=== PATIENT | male | born 1935 | race Caucasian/White ===

== ENCOUNTER 2017-06-07 13:06 | Inpatient (IN) | payer MEDICARE, OTHER ==
[2017-06-07] VITALS (12 sets, daily range): BP systolic 116–132; BP diastolic 77–94; BMI 21.4
[~2017-06-07] VITALS: Ht 182.9 cm; Wt 68.9 kg
--- NOTE | ~2017-06-07 | HEMODYNAMI ---
PATIENT:Deepak GALEANO MEDICAL RECORD: [id number] : 35 [facility] ADMISSION DATE: 06/07/17 Generatedon:06/15/201714:24 Patient name: Deepak GALEANO Patient #: [id number] SSN: : [birth year] Date of study: 06/15/2017 Page: Of Hemodynamic Procedure Report Patient Data Patient Demographics Procedure consent was obtained First Name: Deepak Gender: Male Last Name: WALESKA : 1935 Middle Initial: D Age: 82 year(s) Patient #: [id number] Race: Additional ID: [id number] Contact details [address]: [address] [place] [address] State: [place] City: [place] Zip code: [address] Past Medical History Allergies Allergen Reaction Date Comments Reported Penicillins 06/15/2017 Other allergy 06/15/2017 LEVAQUIN Admission Admission Data Admission Date: 06/07/2017 Admission Time: 13:06 Room #: 2114 Procedure Procedure Types Cath Procedure Diagnostic Procedure C [facility] w/Coronaries Procedure Description Procedure Date Procedure Date: 06/15/2017 Procedure Start Time: 14:07 Procedure End Time: 14:24 Procedure Staff Name Function Laci Burgos MD Performing Physician Giovanni Alvarado RT Monitor Lavonne Presley RT Scrub Xavi Garcia RN Nurse Procedure Data Cath Procedure Fluoroscopy Diagnostic fluoroscopy Total fluoroscopy Time: 1.1 time: 1.1 min min Diagnostic fluoroscopy Total fluoroscopy dose: dose: 62.73 mGy 62.73 mGy Contrast Material Contrast Material Type Amount (ml) Isovue 300 41 Entry Location Entry Primary Successful Side Size Upsize Upsize Entry Closure Caraballo ccessful Closure Location (Fr) 1 (Fr) 2 (Fr) Remarks Device Remarks Radial Right 6 Fr Mechanical artery Short Compression Estimated blood loss: 5 ml Diagnostic catheters Device Type Used For End Catheter Placement DIAGNOSTIC Cabot 110cm 5 Procedure Fr catheter ([id number]) Procedure Medications Medication Administration Route Dosage Oxygen NC 2 l/min Heparin Flush Bag added to field 2 bags (1000units/500ml NS) 0.9% NaCl I.V. ml/hr Radial Cocktail added to field 1 syringe (Verapomil 2mg/Nitro 400mcg/Heparin 1500units) Radial Cocktail added to field 1 syringe (Verapomil 2mg/Nitro 400mcg/Heparin 1500units) Hemodynamics Rest Heart Rate: 80 (bpm) Pressure Samples Time Site Value (mmHg) Purpose Heart Use Rate(bpm) 14:11 LV 50/-88,50 Snapshot 55 Snapshots Pre Cath Intra NCS Post Cath Vital Signs Time Heart Resp SPO2 etCO2 NIBP (mmHg) Rhythm Pain Sedation Rate (ipm) (%) (mmHg) Status Level (bpm) 13:58:39 80 28 94 0 123/83(107) NSR 0 (11) 10(A) , No pain 14:02:53 79 27 95 0 122/83(109) NSR 0 (11) 10(A) , No pain 14:07:56 81 25 94 0 126/74(109) NSR 0 (11) 10(A) , No pain 14:12:10 82 21 95 0 102/68(81) NSR 0 (11) 10(A) , No pain 14:16:20 81 21 94 0 96/68(88) NSR 0 (11) 10(A) , No pain 14:18:10 80 17 94 0 112/75(89) NSR 0 (11) 10(A) , No pain 14:22:37 81 17 95 0 No Cuff NSR 0 (11) 10(A) , No pain Medications Time Medication Route Dose Verified Delivered Reason Notes Effectiveness by by 13:58:55 Oxygen NC 2 l/min Laci Garcia RN physician 13:59:03 Heparin Flush added 2 bags Laci Hurley used for Bag to Aubrey Garcia RN procedure (1000units/500ml field NS) 13:59:29 0.9% NaCl I.V. ml/hr Laci Garcia RN physician 13:59:43 Radial Cocktail added 1 Laci Hurley used for (Verapomil to syringe Aubrey Garcia RN procedure 2mg/Nitro field 400mcg/Heparin 1500units) 14:17:22 Radial Cocktail added 1 Laci Aguero for (Verapomil to syringe Aubrey Burgos MD vasodilation 2mg/Nitro field 400mcg/Heparin 1500units) Procedure Log Time Note 13:30:10 Giovanni Alvarado RT(R) (CV) sent for patient. Start room use. 13:34:36 Informed consent obtained and on chart 13:34:45 Diagnostic Cath Status : Elective 13:35:12 Time tracking: Regular hours 13:35:17 Plan of Care:Hemodynamics will remain stable., Cardiac rhythm will remain stable., Comfort level will be maintained., Respiratory function will remain adequate., Patient/ family verbilizes understanding of procedure., Procedure tolerated without complication., Recovers from procedure without complications.. 13:44:20 Patient received from Med II to CCL 1 Alert and oriented. Tansferred to table in Supine position. 13:44:22 Warm blankets applied, and suzanne hugger turned on for patient comfort. 13:44:22 Correct patient and procedure confirmed by team. 13:44:24 ECG and BP/O2 sat monitors applied to patient. 13:57:35 Vital chart was started 13:58:55 Oxygen 2 l/min NC was administered by Xavi Garcia RN; Per physician; 13:59:03 Heparin Flush Bag (1000units/500ml NS) 2 bags added to field was administered by Xavi Garcia RN; used for procedure; 13:59:29 0.9% NaCl ml/hr I.V. was administered by Xavi Garcia RN; Per physician; 13:59:43 Radial Cocktail (Verapomil 2mg/Nitro 400mcg/Heparin 1500units) 1 syringe added to field was administered by Xavi Garcia RN; used for procedure; 14:02:10 Baseline sample Acquired. 14:02:15 Rhythm: sinus rhythm 14:02:18 Full Disclosure recording started 14:03:38 H&P Date Dictated: 06/07/2017 Within 30 days and on chart.. 14:03:40 Pre-procedure instructions explained to patient. 14:03:41 Pre-op teaching completed and patient verbalized understanding. 14:03:48 Family in patients room. 14:03:59 Patient NPO since Midnight. 14:04:17 Patient allergic to Penicillins 14:04:45 Patient allergic to Other allergyLEVAQUIN 14:04:49 Is the patient allergic to Iodine/contrast media? No. 14:04:53 Is patient on blood thinner?Yes 14:05:23 ACC The patient was administered the following blood thiners within the last 24 hours: ACCPlavix 14:05:30 Patient diabetic? Unknown. 14:05:33 ----Pre-sedation anethsthesia assessment.---- 14:05:46 Previous problem with sedation/anesthesia? Unknown ? 14:05:48 Snore? Yes 14:05:51 Sleep apnea? No 14:05:52 Deviated septum? No 14:06:01 Opens mouth fully? No 14:06:03 Sticks out tongue? No 14:06:08 Airway obstruction? No ? 14:06:13 Dentures? Yes OUT 14:06:24 IV patent on arrival in right wrist with 0.9% NaCl at [facility]. 14:06:59 Right Radial & Right Groin area was prepped with chlora-prep and draped in sterile fashion 14:07:01 Physician arrived 14:07:01 --------ALL STOP TIME OUT------ 14:07:02 Final Timeout: patient, procedure, and site verified with staff and physician. All members of the team are in agreement. 14:07:04 Right Radial & Right Groin site verified by team. 14:07:08 Physical assessment completed. ASA score P 2 - A patient with mild systemic disease as per Laci Burgos MD. 14:07:13 Sedation plan: IV Moderate Sedation Medication:Versed, Fentanyl 14:07:27 Use device set Radial Dx 14:07:29 ACIST Syringe (17771) opened to sterile field. 14:07:29 Medline Cath Pack ([id number]) opened to sterile field. 14:07:30 Bag Decanter (2001S) opened to sterile field. 14:07:30 SHEATH 6FR Slender ([id number]) opened to sterile field. 14:07:31 DIAGNOSTIC WIRE .035 260cm J wire (759087) opened to sterile field. 14:07:32 ACIST Hand Control (18040) opened to sterile field. 14:07:32 ACIST Manifold (04727) opened to sterile field. 14:07:33 Tegaderm 4 x 4 (1626W) opened to sterile field. 14:07:34 MBrace Wrist Support ([id number]) opened to sterile field. 14:07:44 Procedure started. 14:07:51 Local anesthetic to right radial artery with Lidocaine 2% by Laci Burgos MD.INITIAL ACCESS ONLY 14:09:31 A 6 Fr Short sheath was inserted into the Right Radial artery 14:09:49 A DIAGNOSTIC Cabot 110cm 5 Fr catheter (122939) was advanced over the wire and used for Procedure. 14:09:54 Zero performed for pressure channel P1 14:10:00 Zero performed for pressure channel P1 14:10:06 Zero performed for pressure channel P1 14:10:13 Zero performed for pressure channel P1 14:10:19 Zero performed for pressure channel P1 14:11:41 LV hemodynamics recorded. 14:11:43 LV gram done using DON 14:11:48 EF : 20 % 14:11:59 LCA angiography performed. 14:12:26 RCA angiography performed. 14:12:36 Catheter removed. 14:12:39 TR BAND Standard ([id number]) opened to sterile field. 14:13:25 RESPIRATORY CALLED FOR ABG 14:15:01 ABG DRAWN 14:15:14 Sheath removed intact; hemostasis achieved with Mechanical Compression to the Right Radial artery. 14:15:16 Procedure ended.(Physican Out) 14:17:22 Radial Cocktail (Verapomil 2mg/Nitro 400mcg/Heparin 1500units) 1 syringe added to field was administered by Laci Burgos MD; for vasodilation; 14:17:38 Fluoroscopy time 01.10 minutes. 14:17:45 Fluoroscopy dose: 62.73 mGy 14:17:45 Flurop Dose total: 62.73 14:18:07 Contrast amount:Isovue 300 41ml. 14:18:09 Sharps counted by scrub and verified by R.N. 14:18:17 TR band inflated with 8cc of air. 14:18:19 Insertion/operative site no bleeding no hematoma. 14:19:49 Post right radial artery:stable 14:20:19 Post-procedure physical assessment completed. ASA score P 2 - A patient with mild systemic disease as per Laci Burgos MD. 14:20:30 Post procedure rhythm: sinus rhythm 14:20:33 Estimated blood loss: 5 ml 14:20:58 Patient needs reinforcement of post procedure teaching. 14:21:16 Procedure and supply charges have been captured, reviewed, submitted and are correct. 14:23:43 Vital chart was stopped 14:23:44 See physician's report for complete and final results. 14:23:46 Report given to PCU. 14:23:53 Patient transfered to PCU with Bed. 14:24:00 Procedure ended. 14:24:00 Full Disclosure recording stopped 14:24:06 End room use (Document Last) Device Usage Item Name Manufacture Quantity Catalog Hospital Part Current Minima l Lot# / Number Charge Number Stock Stock Serial# Code ACIST Acist 1 75732 626846 191229 584024 20 Syringe Medical (90107) Systems Inc Medline Cath Cardinal 1 [id number] 297327 29546 957799 5 Pack ClaimSync ([id number]) Bag Decanter Microtek 1 2001S 210513 11906 272736 5 (2001S) Medical Inc. SHEATH 6FR Terumo 1 [id number] 081036 316143 668543 40 Slender ([id number]) DIAGNOSTIC St Tushar 1 249598 091220 078431 592165 30 WIRE .035 260cm J wire (181428) ACIST Hand Acist 1 18319 865343 081583 170541 5 Control Medical (19607) Systems Inc ACIST Acist 1 75056 871685 159678 191745 5 Manifold Medical (97584) Systems Inc Tegaderm 4 x 3M 1 1626W 355422 871950 813484 5 4 (1626W) MBrace Wrist Advanced 1 140-0250-00 781736 94730 631104 5 Support Vascular ([id number]) Dynamics DIAGNOSTIC Terumo 1 40-5013 387206 876261 378262 5 Cabot 110cm 5 Fr catheter (000883) TR BAND Terumo 1 [id number] 203768 572046 142420 40 Standard ([id number]) Signature Audit [place] Stage Time Signature Unsigned Intra-Procedure 06/15/2017 Giovanni Alvarado 2:24:46 PM RT(R) (CV) Signatures Monitor : Giovanni Alvarado RT Signature : Date : Time : [facility] [address] [place] [address]
[2017-06-07] MEDS ORDERED: PROVENTIL HFA6.7 GM INH (13:35)
[2017-06-07] MEDS ORDERED: NEURONTIN 300300 MG PO (13:36)
[2017-06-07] MEDS ORDERED: SYMBICORT 80-10.2 GM INH (13:36)
[2017-06-07] MEDS ORDERED: NIFEDIPINE ER60 MG PO (13:37)
[2017-06-07] MEDS ORDERED: ZOCOR40 MG PO (13:38)
--- NOTE | 2017-06-07 14:16 | NUR ---
[facility], ALERT AN DORIENTED X3, RESPIRATIONS SHALLOW, O2 3L NC, VSS, WAS RECIEVING IV HEPARIN UPON ARRIVAL, PIV TO RIGHT AND LEFT FOREARM SALINE LOCKED AND HEPARIN STOPPED, SEEN BY DR BUSTILLOS WHO CONFIRMED HE DID NOT WANT PT ON HEPARIN, EKG OBTAINED AND REVIEWED BY APOLLO WHO ALSO REVIEWED [facility] AND SAID WE DID NOT NEED TO REDRAW LABS, CONSULTING LOREN WHO IS IN UNIT AND AWARE, HISTORY AND ASSESSMENT COMPLETED AND DONE, REVIEWED HOME MEDS WITH PT AND DAUGHTER, PT WAS POSITIVE FOR FLU TYPE A AT [facility] AND IN ISOLATION, ABLE TO VOICE ALL NEEDS, WILL CONTINUE TO MONITOR
--- NOTE | 2017-06-07 15:00 | NUR ---
PT REPOSITIONED, VSS, DENIES PAIN, CONTINUES WITH PRODUCTIVE COUGH, ON O2 3L NC, WILL CONTINUE TO MONITOR
--- NOTE | 2017-06-07 17:00 | NUR ---
PT REPOSITIONS SELF, VSS, DAUGHTER IN ROOM SET UP SECURITY CODE PT BIRTHDAY, DENIES ALL NEEDS
--- NOTE | 2017-06-07 19:00 | NUR ---
REPORT RECEIVED AND ASSESSMENT COMPLETED. SEE FLOWSHEET FOR FULLL DETAILS. PT ARRIVED FROM [facility]. EKG WAS THOUGHT TO SHOW ACUTE AR. OUR EKG HERE DID NOT SHOW ST ELEVATION AND FURTHER INSPECTION OF [place] EKG SHOWED NO ST ELEVATION. DR BUSTILLOS STATES PT HAS HAD AN AR RECENTLY; HOWEVER, THIS WAS NOT AN ACUTE AR STUATION BASED ON EKG RESULTS AND TROPONIN LEVELS. WILL TREAT PT FOR PNEUMONIA PER ORDERS, AND AWAIT ORDERS FOR POTENTIAL CARDIAC CATH. PT IS FLU A POSITIVE. IN DROPLET ISOLATION.
--- NOTE | 2017-06-07 21:00 | NUR ---
2100 MEDS GIVEN. FAMILY AT BEDSIDE UPDATED ON PT CONDITION. NO OTHER CHANGES IN STATUS WILL MONITOR
--- NOTE | 2017-06-07 23:00 | NUR ---
REASSESSMENT COMPLETED. SEE FLOWSHEET FOR FULL DETAILS. NO OTHER CHANGES AT THIS TIME. VSS. WILL MONITOR
[2017-06-08] VITALS (24 sets, daily range): BP systolic 100–121; BP diastolic 67–91; BMI 20.6
--- NOTE | 2017-06-08 01:00 | NUR ---
ASSUMED CARE FROM PREVIOUS NURSE. PT IS LYING ON HIS LEFT SIDE AND DOES NOT APPEAR TO BE IN ANY DISTRESS AT THIS TIME. WILL CONT TO MONITOR.
--- NOTE | 2017-06-08 03:45 | NUR ---
ASSESSMENT COMPLETE. PT IS A&O X4 WITH NO COMPLAINTS OF PAIN AT THIS TIME. PIV TO RIGHT AND LEFT FOREARM. LEFT FOREARM INFUSING NS @ 10 ML/HR + ABX. S1S2 AUDIBLE, HR 85. LUNG SOUNDS CLEAR THROUGHOUT ALL LOBES, RR EVEN BUT SHALLOW, NC @ 3 L/MIN. BED IN LOWEST POSITION, CALL LIGHT IN REACH. WILL CONT WITH POC.
[2017-06-08 04:35] LABS: BASOPHILS 0.1 % (0-2); EOSINOPHILS 0 % (0-7); HEMATOCRIT 36.5 % (42.0-54.0); HEMOGLOBIN 11.3 g/dL (13.5-17.5); IMMATURE GRANULOCYTES 0.3 % (0-5); LYMPHOCYTES 11.1 % (15-50); MCH 27.5 pg (26.0-34.0); MCV 88.8 fL (80.0-100.0); MONOCYTES 2.4 % (2-11); NEUTROPHILS 86.1 % (40-80); PLATELET COUNT 189 10x3/uL (130-400); RBC 4.11 10x6/uL (4.20-6.10); WBC 14.5 10x3/uL (4.8-10.8)
[2017-06-08 05:09] LABS: CALCIUM 8.7 mg/dL (8.5-10.1); CREATININE - SERUM 1.5 mg/dL (0.6-1.3); MAGNESIUM - SERUM 1.3 mg/dL (1.8-2.4)
[2017-06-08 05:17] LABS: TROPONIN-I 7.724 ng/mL (0.000-0.060)
--- NOTE | 2017-06-08 05:29 | NUR ---
PT LYING IN BED AND DENIES ANY NEEDS AT THIS TIME. VSS. WILL CONT TO MONITOR.
--- NOTE | 2017-06-08 06:38 | NUR ---
INFORMED DR. BUSTILLOS OF PT'S INCREASE IN TROPONIN. TROPONIN IS CURRENTLY 7.724. NO NEW ORDERS RECIEVED. WILL CONT WITH POC.
--- NOTE | 2017-06-08 07:15 | NUR ---
PT ALERT AND ORIENTED, O2 3L NC, VSS, DENIES PAIN, PRODUCTIVE COUGH NOTED, POSITIVE FOR FLU A, PIV TO BILAT FOREARMS, NS KVO, ABLE TO REPOSITION SELF, WILL CONTINUE TO MONITOR
--- NOTE | 2017-06-08 07:43 | NUR ---
OLDER MAN WITH POOR RENAL FUNCTION. WILL DECREASE THE INTERVAL TO Q24H VANCOMYCIN TROUGH ORDERED PRIOR TO 4TH DOSE 06/10 @0530
--- NOTE | 2017-06-08 08:04 | NUR ---
[facility]
--- NOTE | 2017-06-08 09:18 | NUR ---
PT TOELRATED AM MEDS WELL, DENIES PAIN,VSS, DAUGHTER AND FRIEND AT BEDSIDEFOR VISITATION AND ALL QUESTIONS ANSWERED, PT REPOSITIONS SELF AND DENIES ALL NEEDS, WILL CONTINUE TO MONITOR
--- NOTE | 2017-06-08 11:03 | NUR ---
SPOKE WITH DR PIMENTEL ABOUT PT HAVING DIFFICULTY URINATING AND THAT PT STATES THIS IS NORMAL AFTER HIS TURP, CONSULTED DR MOORE WITH UROLOGY WHO STATED TO ATTEMPT CATHETER INSERTION AND HE WOULD BE BY LATER TO SEE PT
--- NOTE | 2017-06-08 11:19 | NUR ---
PERDUE CATHETER INSERTED USING STERILE TECHNIQUE X1 WITHOUT DIFFICULTY, 1100ML OF CONCENTRATED URINE RETURNED, PT TOLERATED WELL, DENIES DISCOMFORT
--- NOTE | 2017-06-08 11:23 | NUR ---
* Is the patient Alert and Oriented? Yes 0 * How many steps to enter\exit or inside your home? 2-3 0 * PCP Dr. Bah in [place] 0 * Pharmacy [facility] in [place] 0 * Preadmission Environment Home Alone 0 * ADLs Independent 0 * Equipment Nebulizer Oxygen 0 * List name and contact numbers for known caregivers / representatives who currently or will assist patient after discharge: Dereje Wu [phone] 0 * Additional services required to return to the preadmission environment? No 0 * Can the patient safely return to the preadmission environment? Yes 0 * Has this patient been hospitalized within the prior 30 days at any hospital? No Patient Name: Deepak GALEANO Admission Status: Elective Accout number: [id number] Admission Date: 06-07-2017 : 1935 Admission Diagnosis:ACUTE MYOCARDIAL INFARCTION, UNSPECIFIED Attending: JAJA BUSTILLOS Current LOS: 1 Planned Disposition: Home Primary Insurance: MEDICARE A & B Discharge Planning Comments: CM met with patient to assess dc plans/needs. Patient states he lives alone & is independent with all ADL's & IADL's. He wears home O2 @ 2L NC and uses a nebulizer 4x a day. He has not had home health services in the past. At dc, he plans to return home. No needs identified or verbalized at this time. CM will follow. Integrated Program Teacher: Frida Khoury
--- NOTE | 2017-06-08 13:30 | NUR ---
PT AND FAMILY SPOKE TO DR BUSTILLOS AND LOREN, ALL QUESTIONS ANSWERED, PT DENIES ANY NEEDS, WILL CONTINUE TO MONITOR
--- NOTE | 2017-06-08 14:59 | NUR ---
PT REPOSITIONS SELF, DENIES PAIN, VSS, WILL CONTINUE TO MONITOR
--- NOTE | 2017-06-08 17:20 | NUR ---
PT REPOSITIONS SELF, VSS, DENIES PAIN, WILL CONTINUE TO MONITOR
--- NOTE | 2017-06-08 19:15 | NUR ---
ASSESSMENT COMPELTE. S1S2. NSR SHOWING ON MONITOR. RR SHALLOW; DIMINISHED BILATERALLY IN LOWER LOBES. OCCASIONAL COUGH PRESENT; C/O SLIGHT PAIN/DISCOMFORT WHEN COUGHING; SPLINTING STATED TO HELP. RADIAL AND PEDAL PULSES PALPATED. MAKES CHANGES IN POSITION INDEPENDENTLY. 3L VIA NC. COMMUNICATION CLEAR. AAO. MARTÍNEZ.
--- NOTE | 2017-06-08 20:49 | NUR ---
FAMILY AT BEDSIDE; UPDATE GIVEN. QUESTIONS ANSWERED.
--- NOTE | 2017-06-08 20:56 | NUR ---
PT STATED HUNGRY; SANDWICH TRAY PROVIDED.
--- NOTE | 2017-06-08 21:10 | NUR ---
PT C/O NAUSEA AFTER ATTEMPTING TO EAT.
--- NOTE | 2017-06-08 21:42 | NUR ---
SPOKE WITH DR. MOORE. UPDATE ON PT CONDITION. INFORMED ABOUT BLOOD IN PERDUE CATH COLLECTION; NO CLOTS. INSTRUCTED TO IRRIATE IF CLOTS OCCUR; WILL MONITOR CLOSELY. PT DENIES PAIN AT PERDUE CATH SITE; STAT LOCK IN PLACE.
--- NOTE | 2017-06-08 23:15 | NUR ---
REASSESSMENT COMPLETE. NO ACUTE CHANGES FROM PREVIOUS ASSESSMENT. VSS. WEAKNESS NOTED ON EXERTION; BECOMES SOB.
[2017-06-09] VITALS (23 sets, daily range): BP systolic 101–137; BP diastolic 47–99
--- NOTE | 2017-06-09 01:47 | NUR ---
PT RESTING; EYES CLOSED. VSS. NO DISTRESS NOTED. WILL CONTINUE TO MONITOR.
--- NOTE | 2017-06-09 03:00 | NUR ---
REASSESSMENT COMPLETE. NO ACUTE CHANGES FROM PREVIOUS ASSESSMENT. VSS. NO DISTRESS NOTED. WILL CONTINUE TO MONITOR.
[2017-06-09 03:59] LABS: BASOPHILS 0.1 % (0-2); EOSINOPHILS 0 % (0-7); HEMATOCRIT 37.9 % (42.0-54.0); HEMOGLOBIN 12.1 g/dL (13.5-17.5); IMMATURE GRANULOCYTES 0.4 % (0-5); LYMPHOCYTES 9.9 % (15-50); MCH 27.8 pg (26.0-34.0); MCHC 31.9 g/dL (31.0-37.0); MCV 86.9 fL (80.0-100.0); MONOCYTES 2.9 % (2-11); NEUTROPHILS 86.7 % (40-80); PLATELET COUNT 242 10x3/uL (130-400); RBC 4.36 10x6/uL (4.20-6.10); RDW 16.9 % (11.5-14.5); WBC 18.1 10x3/uL (4.8-10.8)
[2017-06-09 04:11] LABS: ANION GAP 16.2 mmol/L (8-16); CALCIUM 8.6 mg/dL (8.5-10.1); CARBON DIOXIDE 20.7 mmol/L (21.0-32.0); CREATININE - SERUM 1.8 mg/dL (0.6-1.3); MAGNESIUM - SERUM 2.7 mg/dL (1.8-2.4); POTASSIUM - SERUM 4.9 mmol/L (3.5-5.1)
--- NOTE | 2017-06-09 05:57 | NUR ---
PT C/O NAUSEA. PRN ZOFRAN GIVEN. SEE EMAR FOR DETAILS.
--- NOTE | 2017-06-09 06:00 | NUR ---
NO VISITORS DURING VISITATION.
--- NOTE | 2017-06-09 07:15 | NUR ---
PT ALERT AND ORIENTED, STATED NAUSEA HAS RESOLVED FROM PREVIOUS MEDICATION BUT IV TO LEFT FA STILL IS UNCOMFORTABLE AFTER PREVIOUS NURSE SWITCHED NS TO RIGHT FA, LFA PIV HAS SOME EDEMA AND WAS REMOVED WITHOUT DIFFICULTY TIP INTACT, O2 3L NC, PERDUE DRAINING PINK TINGED URINE, VSS, DENIES FURTHER NEEDS, BREAKFAST TRAY OFFERED AND PT STATED TO LEAVE IT COVERED AT BEDSIDE AND HE WOULD EAT SHORTLY, DISCUSSED ENSURES WITH PT AND HE STATED HE ALWAYS GETS SICK TO HIS STOMACH WHEN HE DRINKS THEM.
--- NOTE | 2017-06-09 09:00 | NUR ---
PT TOLERATED AM MEDS WELL, CONTINUES WITH SLIGHT NAUSEA, NO EMESIS, DID NOT WANT BREAKFAST TRAY BUT ACCEPTED A LEMON NIKOLAI CANDIS
--- NOTE | 2017-06-09 11:00 | NUR ---
PT REPOSITIONS SELF, DENIES PAIN, VSS, PERDUE DRAINING DARK PINK WITH NO CLOTS VISIBLE, WILL CONTINUE TO MONITOR
--- NOTE | 2017-06-09 11:38 | CN ---
PATIENT NAME:Deepak HAYDEN MEDICAL RECORD: [id number] : 35 LOCATION:G[facility].2312 ADMIT DATE: 06/07/17 ACCOUNT: [id number] CONSULTING PHYSICIAN: SHAWNEE PIMENTEL MD REFERRING PHYSICIAN: CHIDI BURGOS MD DATE OF CONSULTATION: 06/07/2017 CONSULT REQUESTING PHYSICIAN: Dr. Chidi Burgos. REASON FOR CONSULTATION: Acute exacerbation of COPD, pneumonia. HISTORY OF PRESENT ILLNESS: Mr. Hayden is an 82-year-old gentleman who was admitted to [facility] with pneumonia. He was discharged home a couple of days ago, came back early this morning with worsening shortness of breath, and also he was complaining of chest pain. He also running fever and there was some sweats at night. REVIEW OF SYSTEMS: HEENT: He has sinus congestion. CONSTITUTIONAL: He has a fever and chill. RESPIRATORY: As in history of present illness. CARDIOVASCULAR: He has a chest pain. No radiating to the arm, to the jaw. GASTROINTESTINAL: Negative. GENITOURINARY: Negative. Other review of the systems is negative. PAST MEDICAL HISTORY: 1. COPD. 2. Coronary artery disease. 3. Hypertension. 4. Benign prostatic hypertrophy. 5. History of asthma. 6. Arthritis. 7. History of neuropathy. PAST SURGICAL HISTORY: 1. He has a cataract surgery. 2. Left lung surgery for pneumothorax. 3. TURP. PERSONAL SOCIAL HISTORY: The patient is an ex-smoker. He is a nondrinker. FAMILY HISTORY: Significant for heart disease and COPD. PHYSICAL EXAMINATION: GENERAL: Now, the patient is lying comfortably. He is not in acute distress. VITAL SIGNS: The blood pressure 132/90, pulse is 132, respirations 13, temperature 100.9, SPO2 is 99% on 2 liters nasal cannula. HEENT: Conjunctivae are pink. Sclerae nonicteric. NECK: Neck is supple. No JVD. CHEST: The chest excursion is minimal with bibasilar crackles and wheeze on forceful expiration. HEART: Rhythm regular. Normal sound. No murmur. ABDOMEN: Abdomen is soft. Bowel sounds present. No hepatosplenomegaly. RECTAL: Deferred. CONSULT REPORT [id number] Deepak HAYDEN EXTREMITIES: No cyanosis, no clubbing, and no pedal edema. SKIN: The skin is warm, normal turgor. CENTRAL NERVOUS SYSTEM: The patient is awake and alert. He is a bit hard of hearing. Other cranial nerves are intact. LABORATORY DATA AND DIAGNOSTIC STUDIES: Chest radiograph, there are emphysematous changes. There is bilateral increased interstitial marking, possibly consistent with pneumonitis, doubt edema. CBC; WBC 13.1, hemoglobin 13.2, and hematocrit 38.7. Chemistry: Glucose 92, BUN is 26, creatinine 1.27, and sodium 139. The influenza A was positive. IMPRESSION: 1. Acute exacerbation of chronic obstructive pulmonary disease. 2. Mouai-ze-yhvombo hypoxic respiratory failure. 3. Bilateral lower lobe pneumonia. 4. Chest pain, rule out acute coronary syndrome. 5. Flu, positive for influenza A. 6. Leukocytosis secondary to pneumonia. 7. Chest pain. 8. Febrile illness. RECOMMENDATION: 1. Start him on Tamiflu 75 mg b.i.d., albuterol and ipratropium nebulizer, Brovana, budesonide nebulizer, methylprednisolone IV. Start him on vancomycin, cefepime, and doxycycline to cover for hospital-acquired pneumonia, gram-negative sonali as well as questionable MRSA as the patient has failed antibiotics in the last hospital admission and at home. 2. Follow up labs and chest radiograph. 3. Antitussive. Dr. uBrgos, thank you for involving me in the care of Mr. Hayden. The critical care time is 50 minutes. TRANSINT:[id number] Voice Confirmation ID: [id number] DOCUMENT ID: [id number] SHAWNEE PIMENTEL MD at 1138 CC: CHIDI BURGOS MD [id number] DICTATION DATE: 06/07/17 1518 SALES SERVICE ASSISTANT: 06/07/17 1552 ADM IN [facility] [address] [place] [address]
--- NOTE | 2017-06-09 12:42 | NUR ---
SPOKE WITH PT AND DAUGHTER AFTER PT SPOKE WITH DR FORMAN TO OBTAIN CONSENT FOR BLOOD AND CATH PROCEDURE, PT IN AGREEMENT BUT ASKED DAUGHTER TO SIGN HE FELT HIS HANDS WERE TOO SHAKY, WITNESSED BY ANOTHER NURSE
--- NOTE | 2017-06-09 16:18 | NUR ---
PT REPOSITIONED, VSS, DENIES PAIN, TOTAL BED BATH AND LINEN CHANGE
[2017-06-09 16:28] LABS: HEMOGLOBIN A1C 6.1 % (4.8-6.0)
--- NOTE | 2017-06-09 17:13 | NUR ---
PT DENIES ALL NEEDS, VSS, REPOSITIONED, FAMILY IN ROOM AND ALLQUESTIONS ANSWERED, WILL CONTINUE TO MONITOR
--- NOTE | 2017-06-09 19:15 | NUR ---
ASSESSMENT COMPLETE. S1S2. NSR SHOWING ON MONITOR. RR SHALLOW; DIMINISHED BILATERALLY IN LOWER LOBES. PT C/O NAUSEA. AAO. PERRLA. WEAKNESS NOTED TO EXTREMITIES. RADIAL AND PEDAL PULSES PALPATED. BOWEL SOUNDS ACTIVE X4. PERDUE CATH IN PLACE; BLOODY UOP; NO CLOTS SEEN; MONITORING CLOSELY. VSS. 3L VIA NC. DENIES SOB. DENIES PAIN. MAKES CHANGES IN POSITION INDEPENDENTLY. CLEAR COMMUNICATION.
--- NOTE | 2017-06-09 20:10 | NUR ---
FAMILY AT BEDSIDE. UPDATE GIVEN. QUESTIONS ANSWERED. PT C/O NAUSEA. FAMILY INSISTING ON GIVING PT MEDICATION; EXPLAINED NOT TIME FOR MEDIATION; THAT IT IS ORDERED Q4H AND LAST DOSE WAS GIVEN LESS THAN 4H AGO. FAMILY TALKS TO RT ABOUT PT C/O NAUSEA AND TO ASK THIS NURSE FOR MEDICATION FOR NAUSEA.
--- NOTE | 2017-06-09 22:40 | NUR ---
PT HAS VOMITED X2. 125ML. BROWNISH COLOR.
--- NOTE | 2017-06-09 23:21 | NUR ---
REASSESSMENT COMPLETE. NO ACUTE CHANGES FROM PREVIOUS ASSESSMENT. VSS. NO DISTRESS NOTED. C/O NAUSEA AND VOMITING.
[2017-06-10] VITALS (21 sets, daily range): BP systolic 105–155; BP diastolic 72–106; Ht 182.9 cm; Wt 68.9 kg
--- NOTE | 2017-06-10 02:37 | NUR ---
PT VOMITED ON SELF. PT CLEANED. BATH GIVEN. COMPLETE LINEN CHANGE.
--- NOTE | 2017-06-10 03:30 | NUR ---
REASSESSMENT COMPLETE. NO ACUTE CHANGES FROM PREVIOUS ASSESSMENT. SEE FLOWSHEET FOR DETAILS.
[2017-06-10 04:59] LABS: BASOPHILS 0.1 % (0-2); EOSINOPHILS 0 % (0-7); HEMOGLOBIN 12.6 g/dL (13.5-17.5); IMMATURE GRANULOCYTES 0.7 % (0-5); MCH 27.6 pg (26.0-34.0); MCHC 32.3 g/dL (31.0-37.0); MCV 85.5 fL (80.0-100.0); MEAN PLATELET VOLUME 12.1 fL (7.4-10.4); MONOCYTES 2.3 % (2-11); NEUTROPHILS 90.9 % (40-80); PLATELET COUNT 228 10x3/uL (130-400); RBC 4.56 10x6/uL (4.20-6.10); RDW 16.7 % (11.5-14.5); WBC 19.2 10x3/uL (4.8-10.8)
[2017-06-10 05:12] LABS: ANION GAP 17.8 mmol/L (8-16); CALCIUM 8.8 mg/dL (8.5-10.1); CARBON DIOXIDE 24.9 mmol/L (21.0-32.0); MAGNESIUM - SERUM 2.7 mg/dL (1.8-2.4); POTASSIUM - SERUM 4.7 mmol/L (3.5-5.1); VANCOMYCIN - TROUGH 25.8 ug/mL (10.0-20.0)
[2017-06-10 05:15] LABS: CREATININE - SERUM 2.7 mg/dL (0.6-1.3)
--- NOTE | 2017-06-10 05:43 | NUR ---
[facility] TROUGH 25.8. VANC HELD.
--- NOTE | 2017-06-10 07:57 | NUR ---
TROUGH THIS AM = 25.8. DRAWN ABOUT AN HOUR EARLY BUT PT'S SCR HAS WORSENED. WILL HOLD DOSES AND ORDER RANDOM IN AM.
--- NOTE | 2017-06-10 09:19 | NUR ---
RT ARN IV SITE SLIGHT REDNESS AND SL SWELLING NOTED. RESITE TO L FA 22G INSITE X 1 STICK.
--- NOTE | 2017-06-10 09:27 | NUR ---
NUTRITION F/U PT IN ISOLATION. NPO AWAITING HEART CATH. WILL PROVIDE REG DIET WHEN RESUMED, MONITOR PO INTAKE. RD FOLLOWING
--- NOTE | 2017-06-10 11:22 | NUR ---
PREOP DONE FOR FRONT DESK HOST.
--- NOTE | 2017-06-10 12:06 | NUR ---
DR PIMENTEL HERE. REC'D CALL FROM MERCHANDISE MANAGER REPORTING NO CATH TODAY RE: CREATNINE ELEVATING. REPORTED TO DR PIMENTEL. RENAL CONSULT ORDER RECEIVED AND DR SHEFFIELD PAGED. AWAITING CALL BACK.
--- NOTE | 2017-06-10 19:15 | NUR ---
ASSESSMENT COMPELTE. S1S2. NSR SHOWING ON MONITOR. RR SHALLOW DIMINISHED BILATERALLY IN LOWER LOBES. AAO. PERRLA. WEAKNESS NOTED IN EXTREMITIES. PT C/O OF FEELING SICK; NAUSEA; DENIES NEED FOR NAUSEA MEDICATION. RADIAL AND PEDAL PULSES PALPATED. BRUISING NOTED TO RIGHT FOREARM; GENERALIZED BRUISING NOTED TO LEFT ARM.
--- NOTE | 2017-06-10 20:10 | NUR ---
FAMILY AT BEDSIDE; UPDATE GIVEN. QUESTIONS ANSWERED.
--- NOTE | 2017-06-10 21:02 | NUR ---
PT C/O NAUSEA. PRN PHENEGREN GIVEN PER ORDERS. SEE EMAR FOR DETAILS.
--- NOTE | 2017-06-10 23:10 | NUR ---
REASSESSMENT COMPLETE. NO ACUTE CHANGES FROM PREVIOUS ASSESSMENT. VSS. NO DISTRESS NOTED. WILL CONTINUE TO MONITOR.
[2017-06-11] VITALS (24 sets, daily range): BP systolic 88–121; BP diastolic 58–89
--- NOTE | 2017-06-11 01:30 | NUR ---
PT RESTING; EYES CLOSED. VSS. NO DISTRESS NOTED. WILL CONTINUE TO MONITOR.
--- NOTE | 2017-06-11 03:22 | NUR ---
REASSESSMENT COMPLETE. NO ACUTE CHANGES NOTED AT THIS TIME. WILL CONTINUE TO FOLLOW PLAN OF CARE.
[2017-06-11 05:28] LABS: ANION GAP 16.6 mmol/L (8-16); CALCIUM 8.1 mg/dL (8.5-10.1); CREATININE - SERUM 2.7 mg/dL (0.6-1.3); MAGNESIUM - SERUM 2.3 mg/dL (1.8-2.4); POTASSIUM - SERUM 4.6 mmol/L (3.5-5.1); VANCOMYCIN - RANDOM 17.1 ug/mL (10.0-20.0); VANCOMYCIN - TROUGH 17.1 ug/mL (10.0-20.0)
--- NOTE | 2017-06-11 05:30 | NUR ---
NO VISITORS DURING VISITATION.
[2017-06-11 05:47] LABS: BASOPHILS 0.2 % (0-2); EOSINOPHILS 0 % (0-7); HEMATOCRIT 32.3 % (42.0-54.0); HEMOGLOBIN 10.5 g/dL (13.5-17.5); IMMATURE GRANULOCYTES 0.7 % (0-5); LYMPHOCYTES 8.5 % (15-50); MCH 27.4 pg (26.0-34.0); MCHC 32.5 g/dL (31.0-37.0); MCV 84.3 fL (80.0-100.0); MEAN PLATELET VOLUME 12.8 fL (7.4-10.4); MONOCYTES 1.9 % (2-11); NEUTROPHILS 88.7 % (40-80); PLATELET COUNT 123 10x3/uL (130-400); RBC 3.83 10x6/uL (4.20-6.10); RDW 16.6 % (11.5-14.5); WBC 12.3 10x3/uL (4.8-10.8)
--- NOTE | 2017-06-11 06:26 | NUR ---
PT RESTING; EYES CLOSED. VSS. NO DISTRESS NOTED. WILL CONTINUE TO MONITOR.
[2017-06-11 09:55] LABS: APPEARANCE CLEAR (CLEAR); BACTERIA FEW /hpf (NONE SEEN); BILIRUBIN NEGATIVE (NEGATIVE); COLOR YELLOW (YELLOW); EPITHELIAL CELLS 0-5 /hpf (0-5); GLUCOSE NEGATIVE (NEGATIVE); HYALINE CAST OCC /lpf (NONE SEEN); KETONE NEGATIVE (NEGATIVE); MUCUS <1+ /lpf (NONE SEEN); NITRITE NEGATIVE (NEGATIVE); PROTEIN 1+ mg/dL (NEGATIVE); RED CELLS - URINE >50 /hpf (0-5); UROBILINOGEN NORMAL (NORMAL)
--- NOTE | 2017-06-11 19:00 | NUR ---
REPORT RECIEVED, SHIFT ASSESSMENT COMPLETE, PLEASE SEE FLOW SHEETS FOR DETAILS. WAKES TO VOICE, ALERT AND ORIENTED X4, DENIES PAIN/NEEDS ATT THOUGH DOES SAY HIS THROAT IS SORE. LUNGS CLEAR IN UPPER LOBES AND DIMINISHED IN LOWER LOBES. SHALLOW BREATHS NOTED. 2L NC ON. S1S2 HEARD AND NSR NOTED ON MONITOR WITH PERIODIC PVC'S. PPP. CAP REFIL <3 SECONDS. BOWEL SOUNDS ACTIVE X4. SOME SOFT DISTENTION NOTED. PERDUE IN PLACE AND DRAINING VIA GRAVITY CLEAR YELLOW URINE. BED LOW AND LOCKED, CALL LIGHT IN REACH. MOVES SELF AROUND IN BED. VSS, WILL CPOC.
--- NOTE | 2017-06-11 21:05 | NUR ---
FAMILY AT BEDSIDE, GAVE UPDATE. REQUESTED A THROAT SPRAY, CALLED DR PIMENTEL AND THIS WAS ORDERED. NO OTHER NEEDS ATT. VSS, BED LOW AND LOCKED, CALL LIGHT IN REACH. WILL CPOC.
--- NOTE | 2017-06-11 23:00 | NUR ---
REASSESSMENT COMPLETE PER FLOW SHEET, NO CHANGES FROM PREVIOUS ASSESSMENT TO NOTE. DENIES PAIN/NEEDS ATT. BED LOW AND LOCKED, CALL LIGHT IN REACH. VSS, WILL CPOC.
[2017-06-12] VITALS (24 sets, daily range): BP systolic 111–127; BP diastolic 52–89
--- NOTE | 2017-06-12 01:00 | NUR ---
SLEEPING, NO S&S ACUTE DISTRESS NOTED. VSS, BED LOW AND LOCKED, CALL LIGHT IN REACH. WILL CPOC.
--- NOTE | 2017-06-12 03:00 | NUR ---
REASSESSMENT COMPELTE PER FLOW SHEET, PLEASE SEE FLOW SHEET FOR DETAILS. NO CHANGES FROM PREVIOUS ASSESSMENT TO NOTE. PT DENIES PAIN/NEEDS ATT. BED LOW AND LOCKED, CALL LIGHT IN REACH. VSS, WILL CPOC.
[2017-06-12 03:46] LABS: BASOPHILS 0 % (0-2); EOSINOPHILS 0 % (0-7); HEMATOCRIT 30.8 % (42.0-54.0); HEMOGLOBIN 10.1 g/dL (13.5-17.5); IMMATURE GRANULOCYTES 0.6 % (0-5); LYMPHOCYTES 5.5 % (15-50); MCH 27.9 pg (26.0-34.0); MCHC 32.8 g/dL (31.0-37.0); MCV 85.1 fL (80.0-100.0); MEAN PLATELET VOLUME 12.4 fL (7.4-10.4); MONOCYTES 1.1 % (2-11); NEUTROPHILS 92.8 % (40-80); RBC 3.62 10x6/uL (4.20-6.10); RDW 16.5 % (11.5-14.5)
[2017-06-12 03:47] LABS: PLATELET COUNT 94 10x3/uL (130-400)
[2017-06-12 04:09] LABS: ANION GAP 15.8 mmol/L (8-16); CALCIUM 7.9 mg/dL (8.5-10.1); CARBON DIOXIDE 21.5 mmol/L (21.0-32.0); CREATININE - SERUM 2.3 mg/dL (0.6-1.3); MAGNESIUM - SERUM 2.2 mg/dL (1.8-2.4); POTASSIUM - SERUM 4.3 mmol/L (3.5-5.1); VANCOMYCIN - RANDOM 21.1 ug/mL (10.0-20.0); VANCOMYCIN - TROUGH 21.1 ug/mL (10.0-20.0)
--- NOTE | 2017-06-12 04:49 | NUR ---
SLEEPING, NO S&S ACUTE DISTRESS NOTED. VSS, BED LOW AND LOCKED, CALL LIGHT IN REACH. WILL CPOC.
--- NOTE | 2017-06-12 08:00 | NUR ---
Vancomycin random level 21.1, not giving dose today. Ordered random 12-3 AM.
--- NOTE | 2017-06-12 19:00 | NUR ---
REPORT RECIEVED, SHIFT ASSESSMENT COMPLETE, PLEASE SEE FLOW SHEETS FOR DETAILS. PT WOKE TO VOICE, ALTERT AND ORIENTED X4. PERRLA. DENIES PAIN/NEEDS ATT. LUNGS CLEAR IN UPPER LOBES AND DIMINISHED IN LOWER LOBES. RR SHALLOW BUT EVEN AND UNLABORED. 2L NC ON. S1S2 HEARD AND NSR NOTED ON MONITOR @ 82. PPP. CAP REFIL <3 SECONDS. BS ACTIVE X4, ABD DISTENTION NOTED AND SOFT TO PALPATION. NO BM REPORTED. FOELY IN PLACE AND DRAINING CLEAR YELLOW URINE VIA GRAVITY. BRUISES NOTED ALL OVER BODY. BED LOW AND LOCKED, CALL LIGHT IN REACH. WILL CPOC.
--- NOTE | 2017-06-12 21:00 | NUR ---
FAMILY AT BEDSIDE, UPDATE GIVEN. PT DENEIS PAIN/NEEDS ATT. BED LOW AND LOCKED, CALL LIGHT IN REACH. VSS, WILL CPOC.
--- NOTE | 2017-06-12 23:00 | NUR ---
Reassessment complete per flow sheet, please see for details. No changes to note from previous assessment. Denies pain/needs att. Bed low and locked, call light in reach. VSS, will CPOC.
[2017-06-13] VITALS (24 sets, daily range): BP systolic 87–134; BP diastolic 54–93
--- NOTE | 2017-06-13 01:00 | NUR ---
RESTING. NO S&S ACUTE DISTRESS NOTED. BED LOW AND LOCKED, CALL LIGHT IN REACH. VSS, WILL CPOC.
--- NOTE | 2017-06-13 03:00 | NUR ---
REASSESSMENT COMPLETE PER FLOW SHEET, PLEASE SEE FOR DETAILS. DENIES PAIN/NEEDS ATT. BED LOW AND LOCKED, CALL LIGHT IN REACH. VSS, WILL CPOC.
--- NOTE | 2017-06-13 05:00 | NUR ---
RESTING, NO S&S ACUTE DISTRESS NOTED. BED LOW AND LOCKED, CALL LIGHT IN REACH. VSS, WILL CPOC.
[2017-06-13 05:38] LABS: BASOPHILS 0 % (0-2); EOSINOPHILS 0 % (0-7); HEMATOCRIT 30.2 % (42.0-54.0); HEMOGLOBIN 9.6 g/dL (13.5-17.5); IMMATURE GRANULOCYTES 0.7 % (0-5); LYMPHOCYTES 6.3 % (15-50); MCH 27.3 pg (26.0-34.0); MCHC 31.8 g/dL (31.0-37.0); MCV 85.8 fL (80.0-100.0); MEAN PLATELET VOLUME 11.1 fL (7.4-10.4); MONOCYTES 1.5 % (2-11); NEUTROPHILS 91.5 % (40-80); RBC 3.52 10x6/uL (4.20-6.10); RDW 16.7 % (11.5-14.5)
[2017-06-13 05:44] LABS: PLATELET COUNT 65 10x3/uL (130-400); WBC 7.1 10x3/uL (4.8-10.8)
[2017-06-13 06:08] LABS: ANION GAP 13.6 mmol/L (8-16); BILIRUBIN - TOTAL 0.8 mg/dL (0.2-1.3); CARBON DIOXIDE 21.6 mmol/L (21.0-32.0); CREATININE - SERUM 1.9 mg/dL (0.6-1.3); MAGNESIUM - SERUM 1.9 mg/dL (1.8-2.4); PHOSPHOROUS 4.1 mg/dL (2.5-4.9); POTASSIUM - SERUM 4.2 mmol/L (3.5-5.1); PROTEIN - SERUM 5.4 g/dL (6.4-8.2); VANCOMYCIN - RANDOM 13.5 ug/mL (10.0-20.0)
--- NOTE | 2017-06-13 07:44 | NUR ---
Vancomycin random today is 13.5, ordered Vancomycin 500mg x1. Ordered random for 12-4 AM.
--- NOTE | 2017-06-13 19:00 | NUR ---
REPORT RECIEVED, SHIFT ASSESSMENT COMPLETE, PLEASE SEE FLOW SHEETS FOR DETAILS. AWAKE AND ALERT, ORIENTED X4. DENIES PAIN/NEEDS ATT. PERRLA. LUNGS WITH CRACKLES IN UPPER LOBES AND DIMINISHED IN LOWER LOBES. 2L NC IN USE AND SPO2 97%. RR EVEN AND UNLABORED ATT. S1S2 HEARD, NSR NOTED ON MONITOR AT 81. PPP. CAP REFIL <3 SECONDS. BS ACTIVE X4, ABD DISTENTION NOTED AND SOFT TO PALP. NO BM REPORTED. DENIES N/V ATT. PERDUE IN PLACE AND DRAINING CLEAR YELLOW URINE VIA GRAVITY. GENENRALIZED BRUISING NOTED. BOTTOM RED. BED LOW AND LOCKED, CALL LIGHT IN REACH. VSS, WILL CPOC.
--- NOTE | 2017-06-13 20:30 | NUR ---
FAMILY AT BEDSIDE, UPDATE GIVEN. NO OTHER NEEDS ATT.
--- NOTE | 2017-06-13 21:51 | NUR ---
FULL BED BATH AND LINEN CHANGE PROVIDED. PERDUE CARE PROVIDED. TOLERATED WELL. BED LOW AND LOCKED, CALL LIGHT IN REACH. VSS, WILL CPOC.
--- NOTE | 2017-06-13 22:48 | NUR ---
REASSESSMENT COMPLETE PER FLOW SHEET, PLEASE SEE FOR DETAILS. NO CHANGES FROM PREVIOUS ASSESSMENT TO NOTE. DENIES PAIN/NEEDS ATT. BED LOW AND LOCKED, CALL LIGHT IN REACH. VSS, WILL CPOC.
[2017-06-14] VITALS (17 sets, daily range): BP systolic 113–137; BP diastolic 78–93
--- NOTE | 2017-06-14 01:00 | NUR ---
Resting, no s&s acute distress noted. Bed low and locked, call light in reach. VSS, will CPOC.
--- NOTE | 2017-06-14 03:00 | NUR ---
REASSESSMENT COMPLETE, PLEASE SEE FLOW SHEETS FOR DETAILS, NO CHANGES FROM PREVIOUS ASSESSMENT TO NOTE. DENIES PAIN/NEEDS ATT. BED LOW AND LOCKED, CALL LIGHT IN REACH. VSS, WILL CPOC.
[2017-06-14 04:29] LABS: BASOPHILS 0.1 % (0-2); EOSINOPHILS 0 % (0-7); HEMATOCRIT 29.6 % (42.0-54.0); HEMOGLOBIN 9.2 g/dL (13.5-17.5); LYMPHOCYTES 6.8 % (15-50); MCH 27.3 pg (26.0-34.0); MCHC 31.1 g/dL (31.0-37.0); MEAN PLATELET VOLUME 11.8 fL (7.4-10.4); MONOCYTES 4.2 % (2-11); NEUTROPHILS 87.9 % (40-80); PLATELET COUNT 70 10x3/uL (130-400); RBC 3.37 10x6/uL (4.20-6.10); RDW 16.7 % (11.5-14.5); WBC 8.4 10x3/uL (4.8-10.8)
[2017-06-14 04:30] LABS: MCV 87.8 fL (80.0-100.0)
--- NOTE | 2017-06-14 04:41 | NUR ---
RESTING, NO S&S ACUTE DISTRESS NOTED. BED LOW AND LOCKED, CALL LIGHT IN REACH. VSS, WILL CPOC.
[2017-06-14 04:55] LABS: ALBUMIN 2.2 g/dL (3.4-5.0); ANION GAP 12.2 mmol/L (8-16); CALCIUM 8.2 mg/dL (8.5-10.1); CARBON DIOXIDE 21.2 mmol/L (21.0-32.0); CREATININE - SERUM 1.7 mg/dL (0.6-1.3); POTASSIUM - SERUM 4.4 mmol/L (3.5-5.1); PROTEIN - SERUM 5.2 g/dL (6.4-8.2); VANCOMYCIN - RANDOM 14.6 ug/mL (10.0-20.0); VANCOMYCIN - TROUGH 14.6 ug/mL (10.0-20.0)
--- NOTE | 2017-06-14 07:37 | NUR ---
VANCOMYCIN RANDOM THIS AM = 14.6 DOSED 500MG X 1 TODAY IS 7TH AND FINAL DAY OF DOSING.
--- NOTE | 2017-06-14 08:00 | NUR ---
INFECTION CONTROLLED ORDER FOR PT TO BE REMOVED FROM ISOLATION.
--- NOTE | 2017-06-14 08:47 | NUR ---
AM MEDICATIONS GIVEN. PT HAVING TROUBLE SWALLOWING PILLS DUE TO SORE THROAT. ORAL MOUTH WASH GIVEN. SPOUSE IN ROOM. PT NOT EATING BREAKFAST.
--- NOTE | 2017-06-14 10:50 | NUR ---
NUTRITION F/U CHART REVIEWED. PT VISIT. REPORTS NO APPETITE. MINIMAL PO INTAKE BREAKFAST. ENCOURAGED PO INTAKE. WILL HONOR FOOD PREFERENCES. RD FOLLOWING
--- NOTE | 2017-06-14 12:49 | NUR ---
SPOKE WITH DR. BUSTILLOS. STATED THAT PT IS STABLE ENOUGH TO GO TO PCU.
--- NOTE | 2017-06-14 17:50 | NUR ---
PT SITTING UP EATING DINNER. SPOUSE IN ROOM. PT DENIES OTHER NEEDS AT THIS TIME.
--- NOTE | 2017-06-14 19:06 | NUR ---
PT BEING TRANSFERRED TO PCU ROOM 2113. REPORT CALLED.
--- NOTE | 2017-06-14 19:15 | NUR ---
PT ARRIVES VIA BED FROM ICU ACCOPMPANIED BY NURSE. PLACED ONTO TELEMETRY, NSR ON MONITOR - HR 70'S. PT STATES BEING CONCERNED ABOUT MISSING HIS 1900 UPDRAFT TREATMENT. RESP THERAPY NOTIFIED OF HIS ARRIVAL. VSS, AFEBRILE. PT REQUESTING HIS ONC MOUTHWASH. NOTIFIED PHARMACY TO PLEASE BRING ANOTHER BOTTLE. PT WITH COARSE LUNG SOUNDS AND O2 3LPM NC. DYSPNEA NOTED WITH MILD EXERTION. RIGHT FOREARM IV WITH DOBUTAMINE @ 5 MCG - 10.5 ML/HR AND NS @ 30 ML/HR. PT TOLERATING WELL PERDUE TO BSD, DRAINS ADEQ AMOUNT CLR YELLOW URINE. SPOUSE IN AT THE BEDSIDE. NO OTHER NEEDS VOICED. WILL CONT TO MONITOR.
--- NOTE | 2017-06-14 22:31 | NUR ---
PT RESTING WELL WITHOUT C/O OR DISTRESS NOTED. NO NEEDS VOICED. SPOUSE AT THE BEDSIDE. WILL CONT TO MONITOR.
[2017-06-15 00:37] VITALS: BP 135/82
[2017-06-15 04:20] VITALS: BP 138/88
--- NOTE | 2017-06-15 04:30 | NUR ---
PT C/O NAUSEA WITH SMALL AMOUNT BILE EMESIS - APPROX 20-30 CC. ZOFRAN 4 MG IV GIVEN. WILL MONITOR.
--- NOTE | 2017-06-15 05:30 | NUR ---
PT CONT TO C/O NAUSEA. NO EMESIS NOTED @ THIS TIME. REPORTS HE FEELS MISERABLE. PHENERGAN 12.5 MG IV GIVEN DILUTED WITH 20 CC NS PUSHED OVER 5 MIN. PT DENIES ANY C/O PAIN OR BURNING AT THE SITE DURING THE IV PUSH. WILL CONT TO MONITOR.
[2017-06-15 06:41] LABS: BASOPHILS 0.1 % (0-2); EOSINOPHILS 0 % (0-7); HEMATOCRIT 31.4 % (42.0-54.0); LYMPHOCYTES 8.2 % (15-50); MCH 27.5 pg (26.0-34.0); MCHC 31.8 g/dL (31.0-37.0); MCV 86.5 fL (80.0-100.0); MEAN PLATELET VOLUME 12.5 fL (7.4-10.4); MONOCYTES 4.8 % (2-11); NEUTROPHILS 85.9 % (40-80); RBC 3.63 10x6/uL (4.20-6.10); RDW 16.8 % (11.5-14.5)
[2017-06-15 06:42] LABS: PLATELET COUNT 90 10x3/uL (130-400); WBC 14.6 10x3/uL (4.8-10.8)
[2017-06-15 07:09] LABS: ANION GAP 12.9 mmol/L (8-16); CARBON DIOXIDE 22.8 mmol/L (21.0-32.0); CREATININE - SERUM 1.6 mg/dL (0.6-1.3); MAGNESIUM - SERUM 1.8 mg/dL (1.8-2.4); PHOSPHOROUS 3.8 mg/dL (2.5-4.9); POTASSIUM - SERUM 4.7 mmol/L (3.5-5.1); VANCOMYCIN - TROUGH 14.6 ug/mL (10.0-20.0)
[2017-06-15 07:43] VITALS: BP 134/82
[2017-06-15 11:35] VITALS: BP 133/82
--- NOTE | 2017-06-15 11:52 | NUR ---
DR. BUSTILLOS NOTIFIED OF C/ PAIN AND NAUSEA. NEW ORDERS GIVEN.
--- NOTE | 2017-06-15 13:37 | NUR ---
PRE-OPS GIVEN. TO WEB ASSISTANT BY BED.
--- NOTE | 2017-06-15 14:46 | NUR ---
BACK FROM NETWORK DEVELOPER. VS WNL. RIGHT WRIST STABLE WITH TR BAND INTACT. WILL MONITOR.
--- NOTE | 2017-06-15 16:40 | NUR ---
UD GIVEN BY RT. TR BAND DCD WITHOUT BLEEDING OR HEMATOMA NOTED. WILL MONITOR.
--- NOTE | 2017-06-15 18:16 | NUR ---
Patient Name: Deepak GALEANO Encounter No: [id number] : 1935 Primary Insurance: MEDICARE A & B Anticipated DC Date: 06-15-2017 Planned Disposition: HOSPICE MEDICAL FACILITY External Planned Provider: [facility] DCP follow-up note: CM RECEIVED HOSPICE ORDER, SPOKE TO PT AND DAUGHTER, DEXTER, IN ROOM. PT REPORTS THAT DEXTER MAKES DECISIONS FOR HIM. CM SPOKE TO VIKAS WHO REPORTS SPEAKING TO THE DOCTOR AND UNDERSTANDS HOSPICE HER MOTHER HAD HOSPICE IN THE HALFWAY. THEY HAVE DECIDED ON HOSPICE FOR PT; CM DISCUSSED HOSPICE COMPANY OPTIONS AND LOCATIONS FOR HOSPICE CARE, LISTING PROVIDED. VIJI WOULD LIKE PT EVALUATED FOR INPATIENT AT [place] WITH [facility]. CM CALLED [facility], , SPOKE TO MARIA EUGENIA AND PROVIDED REFERRAL INFORMATION AND FAXED REFERRAL TO [facility] AT [phone]. DOC OF [facility] ARRIVED, ASSESSED PT AND SPOKE TO PT AND DAUGHTER. DOC ADVISED THAT THE LEGALS HAVE BEEN COMPLETED AND THAT THE HOSPICE NURSE WILL BE HERE SHORTLY TO COMPLETE THE INPATIENT HOSPICE ADMISSION. TODD CHAUDHRY, CASE MANAGEMENT
[2017-06-15 20:00] VITALS: BP 91/62
--- NOTE | 2017-06-15 20:14 | NUR ---
PT LYING IN BED, RESTING COMFORTABLY, HOSPICE NURSE AND FAMILY AT BEDSIDE. FAMILY DENIES ANY NEEDS AT THIS TIME. CONTINUE TO MONITOR CLOSELY.
--- NOTE | 2017-06-22 12:14 | HP ---
PATIENT: Deepak GALEANO MEDICAL RECORD: [id number] ACCOUNT: [id number] LOCATION:[facility].2114 : 35 ADMISSION DATE: 06/07/17 HISTORY AND PHYSICAL EXAMINATION DIAGNOSES: 1. Non-Q-wave myocardial infarction. 2. COPD. 3. Pneumonia. 4. Shortness of breath and dyspnea on exertion. HISTORY: This is a gentleman with no cardiac history, who presented to [facility] last week with pneumonia. He was treated with IV antibiotics. He then got out of the hospital and began having chest pain as well as shortness of breath and returned. Troponin is positive for a myocardial infarction. Initially, they thought his EKG was compatible with an acute myocardial infarction. He was given heparin. He does not have acute ST elevation on our EKG here. In retrospect, their EKG does not as well. He is not having chest pain at this time. PHYSICAL EXAMINATION: GENERAL APPEARANCE: Well-nourished, well-developed, appears stated age. Level of distress, comfortable. PSYCHIATRIC: Mental status, alert, normal affect. Orientation, oriented to time, place and person. EYES: Lids and conjunctiva, noninjected. No discharge, no pallor. ENT: Lips, teeth, gums, normal dentition. Oropharynx, no cyanosis, no pallor. NECK: Carotid arteries, bilateral normal upstroke, no bruits, no thrills. JUGULAR VEINS: No jugular venous pressure or distention. CERVICAL LYMPH NODES: Nontender, nonenlarged. THYROID: Not enlarged. Nontender. No nodules. LUNGS: Respiratory effort, unlabored. CHEST: Normal curvature. No thoracic deformity. No chest wall tenderness. Percussion, resonant. Auscultation, clear. No wheezes, no rales, no rhonchi. CARDIOVASCULAR: Precordial exam, nondisplaced. No heaves or pericardial thrills. Rate and rhythm, regular. Heart sounds, normal S1, normal S2. No S3, no gallop, no rub. Systolic murmur, not heard. Diastolic murmur, not heard. EXTREMITIES: No cyanosis, no edema. Peripheral pulses, full and equal in all extremities, except as noted. No bruits appreciated. ABDOMEN: Soft, nondistended. Normal aorta. No bruit. Nontender. No masses. Liver, nontender, no hepatomegaly. Spleen, nontender, no splenomegaly. MUSCULOSKELETAL: No joint tenderness. No joint swelling. No erythema. NEUROLOGICAL: Normal gait, normal strength, normal tone. SKIN: Warm and dry. OVERALL IMPRESSION: Non-Q-wave myocardial infarction. This is not an acute ST elevation myocardial infarction. Clearly, he has ongoing lung issues. We will consult pulmonary, improve his lung situation, and then we will perform cardiac catheterization. We will start him on aspirin, Plavix, Pravachol, and Bystolic at this time as well as Lovenox. TRANSINT:[id number] Voice Confirmation ID: [id number] DOCUMENT ID: [id number] HISTORY AND PHYSICAL [id number] Deepak GALEANO JEFFREY MD at 1214 CC: [id number] DICTATION DATE: 06/07/171553 HURRICANE TRACKER: 06/07/17 1633 DIS IN 06/15/17 [facility] [address] [place] [address]
--- NOTE | 2017-06-22 12:14 | EC ---
PATIENT:Deepak GALEANO DATE OF SERVICE: 06/08/17 SEX: M MEDICAL RECORD: [id number] DATE OF : 35 LOCATION:D. D.211 AGE OF PATIENT: 82 ADMISSION DATE: 06/07/17 REFERRING PHYSICIAN: INTERPRETING PHYSICIAN: CHIDI BURGOS MD ECHOCARDIOGRAM REPORT ECHO CHARGES 4 ECHO COMPLETE CLINICAL DIAGNOSIS: UT ECHOCARDIOGRAPHIC MEASUREMENTS (adult normal given) AC root (d.<3.7cm) 3.1 cm LV Septum d (<1.2 cm> 0.9 cm Valve Excursion 1.5 cm LV Septum (systole) 1.1 cm Left Atria (s.<4.0cm> 4.1 cm LVPW d(<1.2cm) 0.9 cm RV (d.<2.3cm) 3.7 cm LVPW (sytole) 1.1 cm LV diastole(<5.6CM) 6.4 cm MV E-F(>70mm/sec) cm LV systole 5.4 cm LVOT Diameter 1.9 cm MV exc.(>10mm) 1.3 cm Est.ejection fraction (50-75%) % Pericardial Effusion N DOPPLER: LVIT cm/sec A 113 cm/sec E 45.0 cm/sec LA cm/sec RVSP 41 mmHg LVOT 93 cm/sec AOP1/2T m/s Asc. Ao 112 cm/sec RVOT 84 cm/sec RA cm/sec PA 96 cm/sec AV Gradient Peak 5.02 mmHg AV Mean 2.53 mmHg AV Area 2.4 cm MV Gradient Peak 9.56 mmHg MV Mean 2.34 mmHg MV Area cm COMMENTS: Demo Specialist: Johnnie HAAS Financial Reporting Director: 1 Dr. Burgos TAPE# PACS DATE OF SERVICE: 06/08/2017 PROCEDURE: Echocardiogram. FINDINGS: 1. Left ventricular chamber size is dilated. Left ventricular systolic function is markedly depressed. Overall ejection fraction 25% to 30%. 2. Left atrium is enlarged at 4.1 cm. Right atrium and right ventricular chamber sizes are as well mildly dilated giving 4-chamber dilatation. 3. Valvular structures have normal structure and motion. ECHOCARDIOGRAM REPORT [id number] Deepak GALEANO 4. Doppler interrogation reveals moderate to severe mitral regurgitation, moderate tricuspid regurgitation, no other valvular insufficiency or stenosis. Pulmonary systolic pressure is estimated 41 mmHg. 5. No evidence of pericardial effusion or left ventricular thrombus. TRANSINT:[id number] Voice Confirmation ID: [id number] DOCUMENT ID: [id number] 06/17/2017 Edited to correct date of service, [email or web address]. CHIDI BURGOS MD at 1214 CC: [id number] DICTATION DATE: 06/09/17 1109 DIRECTOR INTERNATIONAL: 06/09/17 1136 DIS IN 06/15/17 [address] [id number] [place] [address]
--- NOTE | 2017-06-22 12:15 | OP ---
PATIENT NAME: Deepak GALEANO MEDICAL RECORD: [id number] :35 LOCATION:[facility] ADMISSION DATE:06/07/17 SURGEON: CHIDI BUSTILLOS MD DATE OF OPERATION: 06/15/2017 PROCEDURES: 1. Left heart catheterization. 2. Selective coronary angiography. 3. Left ventriculogram. INDICATION: Non-Q-wave myocardial infarction and COPD. PROCEDURE IN DETAIL: After informed consent was obtained and after detailed explanation of risks, benefits as well as alternative therapies, the patient elected to proceed with angiogram and heart catheterization. The right radial area was prepped and draped in normal sterile fashion. The right radial artery was cannulated via modified Seldinger technique with placement of 5-Bur[place]ian sheath. All catheters exchanged through this sheath. FINDINGS: Left ventriculogram was performed in standard 30-degree DON view, reveals global hypokinesis, ejection fraction is 20%. SELECTIVE CORONARY ANGIOGRAPHY: Left main, left anterior descending, left circumflex, right coronary artery all have only mild irregularities, no flow-limiting stenosis. OVERALL IMPRESSION: Nonischemic cardiomyopathy, no significant coronary artery disease is present. The myocardial infarction was secondary to demand ischemia from COPD. Center medical management of chronic obstructive pulmonary disease. TRANSINT:[id number] Voice Confirmation ID: [id number] DOCUMENT ID: [id number] CHIDI BUSTILLOS MD at 1215 CC: [id number] DICTATION DATE: 06/15/17 1417 MANAGER ONLINE: 06/15/17 1430 DIS IN 06/15/[address] [address]
== END 2017-06-15 23:16 | disposition hospice, inpatient (51) | DRG 280 ==
LOC: D.M2 13:06 → D.ICU 13:06 → D.M2 06-14 19:13
PROVIDERS: Internal Medicine Nephrology; Internal Medicine Pulmonary Disease; Urology; ADMIT Internal Medicine Interventional Cardiology
PROC: B2151ZZ Fluoroscopy of Left Heart using Low Osmolar Contrast (ICD-10-PCS; 2017-06-15)
PROC: 4A023N7 Measurement of Cardiac Sampling and Pressure, Left Heart, Percutaneous Approach (ICD-10-PCS; 2017-06-15)
PROC: B2111ZZ Fluoroscopy of Multiple Coronary Arteries using Low Osmolar Contrast (ICD-10-PCS; principal; 2017-06-15 12:30)
DX: I21.4 Non-ST elevation (NSTEMI) myocardial infarction (principal); J96.21 Acute and chronic respiratory failure with hypoxia; J11.00 Influenza due to unidentified influenza virus with unspecified type of pneumonia; J15.212 Pneumonia due to Methicillin resistant Staphylococcus aureus; J15.6 Pneumonia due to other Gram-negative bacteria; I50.21 Acute systolic (congestive) heart failure; J44.1 Chronic obstructive pulmonary disease with (acute) exacerbation; J44.0 Chronic obstructive pulmonary disease with (acute) lower respiratory infection; N17.9 Acute kidney failure, unspecified; I42.9 Cardiomyopathy, unspecified; I25.10 Atherosclerotic heart disease of native coronary artery without angina pectoris; N40.0 Benign prostatic hyperplasia without lower urinary tract symptoms; Z87.891 Personal history of nicotine dependence; K76.9 Liver disease, unspecified; D69.6 Thrombocytopenia, unspecified; I11.0 Hypertensive heart disease with heart failure; I24.8 Other forms of acute ischemic heart disease

== ENCOUNTER 2017-06-15 21:57 | Inpatient (IN) | payer OTHER ==
[~2017-06-15] VITALS: Ht 182.9 cm; Wt 68.6 kg
[~2017-06-15 21:57] MED LIST: NEURONTIN 300300 MG PO; NIFEDIPINE ER60 MG PO; PROVENTIL HFA6.7 GM INH; SYMBICORT 80-10.2 GM INH; ZOCOR40 MG PO
--- NOTE | 2017-06-15 23:25 | NUR ---
PT D/C FROM INPATIENT MEDICAL STATUS TO [facility]. FAMILY AT BEDSIDE. PT IS ROUSABLE TO VERBAL STIMULI, CARMELINA VALLE FROM [facility] HAS COMPLETED ADMISSION. WILL CONTINUE TO MONITOR CLOSELY.
--- NOTE | 2017-06-16 00:37 | NUR ---
PRINCIPAL ANDROID DEVELOPER MORPHINE STARTED AND PRN ATIVAN IV GIVEN FOR PT COMFORT PER REQUEST OF PTS FAMILY. PT IS RESTING COMFORTABLY AT THIS TIME. UPON THE TRANSITION TO HOSPICE, THE DOBUTREX DRIP WAS STOPPED. FAMILY REMAINS AT BEDSIDE, NO NEEDS. CONTINUE TO MONITOR CLOSELY.
[2017-06-16 01:48] VITALS: BP 91/62; Ht 182.9 cm; Wt 68.6 kg
[2017-06-16 02:53] VITALS: BP 91/62
--- NOTE | 2017-06-16 04:14 | NUR ---
PT BECOMING RESTLESS, FAMILY REQUESTED PRN ATIVAN. NO OTHER NEEDS. CONTINUE TO MONITOR CLOSELY.
[2017-06-16 10:31] VITALS: BP 108/65
--- NOTE | 2017-06-16 14:43 | NUR ---
TURNED AND REPOSITIONED FOR COMFORT NEEDED. FIELD CLERK INFUSING FOR PAIN CONTROL. FAMILY AT BS. WILL CONT. PLAN OF CARE.
--- NOTE | 2017-06-16 19:54 | NUR ---
RESUMED CARE OF PT, JUNCTIONAL IN THE 40S ON TELEMETRY. HR DECREASED TO ASYSTOLE. FAMILY AT BEDSIDE. CARMELINA WITH [facility] PAGED, AWAITING CALL BACK.
[2017-06-16 20:00] VITALS: BP 79/50
--- NOTE | 2017-06-16 20:07 | NUR ---
HOSPICE NURSE ENMARYCHUYTE. FAMILY AT BEDSIDE.
--- NOTE | 2017-06-16 20:48 | NUR ---
CARMELINA VALLE WITH [facility] HERE.
--- NOTE | 2017-06-16 20:55 | NUR ---
DR. LUCAS PRESENT TO PRONOUNCE
--- NOTE | 2017-06-16 22:20 | NUR ---
FELIZ CONTACTED AND DOES NOT MEET CRITERIA DUE TO AGE.
--- NOTE | 2017-06-22 12:15 | DS ---
PATIENT:Deepak GALEANO :35 MEDICAL RECORD: [id number] DISCHARGE SUMMARY ADMISSION DATE: 06/15/17 DISCHARGE DATE: 06/16/17 DATE OF DISCHARGE: 06/16/2017. DIAGNOSES: 1. Chronic obstructive pulmonary disease, end-stage. 2. Cardiomyopathy. 3. Non-Q-wave myocardial infarction. 4. Smoking. 5. Pneumonia. HOSPITAL COURSE: This is a gentleman who presented with shortness of breath, dyspnea on exertion to [facility], found to have elevated troponin and ruled in for a non-Q-wave myocardial infarction. He has severe end-stage COPD. He underwent cardiac catheterization, no significant coronary artery disease present, but his ejection fraction was in the 20% range. He still remained very short of breath at that time and due to the end-stage heart disease and end-stage lung disease, family decided on inpatient hospice. The patient was transferred to hospice for comfort care measures. TRANSINT:[id number] Voice Confirmation ID: [id number] DOCUMENT ID: [id number] CHIDI BUSTILLOS MD at 1215 CC: [id number] DICTATION DATE: 06/16/17 1622 DECONTAMINATION TECHNICIAN: 06/17/17 1042 DIS IN 06/16/17 [facility] [address] [place] [address]
--- NOTE | 2017-08-20 18:00 | DS ---
PATIENT:Deepak GALEANO :35 MEDICAL RECORD: [id number] DISCHARGE SUMMARY ADMISSION DATE: 06/15/17 DISCHARGE DATE: 06/16/17 DISCHARGE DIAGNOSES: 1. Ischemic cardiomyopathy. 2. Chronic obstructive pulmonary disease. 3. Pneumonia. 4. Flu. 5. Congestive heart failure, chronic systolic dysfunction. HOSPITAL COURSE: This is a gentleman who presents with shortness of breath, found to have an ejection fraction of 20%, mildly elevated troponin, renal failure as well, did not undergo cardiac catheterization secondary to this and multiple other comorbidities, was found to have pneumonia, severe COPD, was treated with aggressive antibiotic therapy continued to decline, was treated from a cardiac standpoint with dobutamine therapy continued to decline, was transferred to hospice. TRANSINT:[id number] Voice Confirmation ID: [id number] DOCUMENT ID: [id number] CHIDI BUSTILLOS MD at 1800 CC: [id number] DICTATION DATE: 08/16/17 1100 LIBRARY MONITOR: 08/16/17 1459 DIS IN 06/16/17 [id number] [place] [address]
== END 2017-06-16 22:21 | DRG 951 ==
LOC: D.M3 21:57 → D.M2 23:19
PROVIDERS: ADMIT Legal Medicine
DX: Z51.5 Encounter for palliative care (principal)